=== PATIENT | female | born 1935 | race Caucasian/White ===

== ENCOUNTER 2016-07-15 06:33 | Emergency (ER) | payer OTHER ==
[~2016-07-15] VITALS: Ht 167.6 cm; Wt 50.0 kg
[~2016-07-15 06:33] MED LIST: CO Q100C9 PO; FISH1000 PO; NITR100C4 PO; RED600TA PO; VITA-13 PO
[2016-07-15 06:35] VITALS: BP 145/73; PULSE 85; RESP 16; TEMP 98.6; O2SAT 99
[2016-07-15] MEDS ORDERED: COQ-150C (06:45)
[2016-07-15] MEDS ORDERED: VITA100064 PO (06:45)
[2016-07-15] MEDS ORDERED: TIZA2CAP3 PO (06:45)
[2016-07-15] MEDS ORDERED: FISH1000 (06:45)
--- NOTE | 2016-07-15 07:14 | PD ---
HPI Chief Complaint: Back/ Neck Pain or Injury Time Seen by Provider: 06:56 Travel History International Travel<30 days: No Contact w/Intl Traveler<30days: No Traveled to known affect area: No History of Present Illness HPI The patient is a 81-year-old female who presents emergency department for bilateral neck pain. The patient notes recent neck pain or last several weeks, was seen by her nurse practitioner at her physician's office that took her off of red rice yeast for hyperlipidemia. The patient was then seen by her neurologist who performed muscle test, which were negative for the patient. The patient was placed on Zanaflex. The patient states she was getting laundry out of the washer yesterday, it was tangled up, she was straining to pull it out of the washer. She now complains of bilateral neck pain with tightness. The pain is worse with movement of her neck, she feels like she has to hold her neck in place. She denies any direct trauma to the neck and denies any recent falls. She did have weakness of the left upper extremity 1 week ago, underwent physical therapy, and now no she is able to use her left upper extremity. She does note some generalized weakness, denies any urinary or fecal incontinence. She denies any numbness or tingling to the upper or lower extremities. She denies any cavity chest pain, shortness breath, nausea, vomiting, abdominal pain. She denies any headache. The patient took 2 Zanaflex without any alleviation of her symptoms. He denies any fever, chills, or sweats. She recently was treated for UTI with Cipro and finished the Cipro. [facility], [facility] Past Medical History Cancer: No Cardiovascular Problems: No Diabetes: No Endocrine: No Genitourinary: Yes (BLADDER PROLAPSE) Hepatitis: No Hiatal Hernia: No Immune Disorder: No Musculoskeletal: Yes (ARTHRITIS, OSTEOPENIA) Neurologic: No Psychiatric: No Reproductive: No Respiratory: No Thyroid Disease: No Tetanus Vaccination: > 5 Years Past Surgical History Abdominal Surgery: Yes (CHOLECYSTECTOMY, APPY) AICD: No Cardiac Surgery: No Ear Surgery: No Endocrine Surgery: No Eye Surgery: No Genitourinary Surgery: No Gynecologic Surgery: Yes (NUHA) Joint Replacement: No Oral Surgery: Yes (T&A) Pacemaker: No Thoracic Surgery: No Other Surgery: Yes Social History Alcohol Use: No Tobacco Use: No Substance Use: No Allergies-Medications (Allergen,Severity, Reaction): Coded Allergies: Alcohol (Unverified Allergy, Severe, VOMITING, SYNCOPE, DIARRHEA, 07/15/16) HMG-CoA Reductase Inhibitors (Unverified Allergy, Severe, MUSCLE WEAKNESS , SYNCOPE, 07/15/16) Penicillin (Unverified Allergy, Severe, HIVES, SWELLING, 07/15/16) Reported Meds & Prescriptions Reported Meds & Active Scripts Active Reported Fish Oil (Alsey-3 Fatty Acids) 1,000 Mg Cap 2,000 Coq-10 (Coenzyme Q10 (Ubidecarenone)) 150 Mg Cap Vitamin D (Cholecalciferol) 1,000 Unit Tab 1,000 Units PO DAILY Tizanidine (Tizanidine HCl) 2 Mg Cap 2 Mg PO TID Review of Systems Except as stated in HPI: all other systems reviewed are Neg General / Constitutional: No: Fever HENT: Positive: Neck Stiffness, Neck Pain, No: Headaches Cardiovascular: No: Chest Pain or Discomfort Respiratory: No: Shortness of Breath Gastrointestinal: No: Nausea, Vomiting, Abdominal Pain Musculoskeletal: Positive: Pain Neurologic: No: Focal Abnormalities, Headache, Paresthesia, Sensory Disturbance Physical Exam Narrative GENERAL: Awake, alert, pleasant 81-year-old female who appears her stated age and appears in moderate discomfort. SKIN: Focused skin assessment warm/dry. HEAD: Atraumatic. Normocephalic. EYES: Pupils equal and round. No scleral icterus. No injection or drainage. ENT: No nasal bleeding or discharge. Mucous membranes pink and moist. NECK: Trachea midline. No JVD. Tenderness of the paravertebral muscles. Limited range of motion with flexion, extension, and rotation secondary to pain. CARDIOVASCULAR: Regular rate and rhythm. No murmur appreciated. RESPIRATORY: No accessory muscle use. Clear to auscultation. Breath sounds equal bilaterally. GASTROINTESTINAL: Abdomen soft, non-tender, nondistended. No rebound tenderness. MUSCULOSKELETAL: No obvious deformities. No clubbing. No cyanosis. No edema. Positive radial pulses bilateral. Patient is able raise arms above her head and is able flex hips and knees. NEUROLOGICAL: Awake and alert. No obvious cranial nerve deficits. Motor grossly within normal limits. Normal speech. Sensation is intact all 4 extremities. She is alert and oriented, nonfocal on exam. PSYCHIATRIC: Appropriate mood and affect; insight and judgment normal. Data Data Last Documented VS Vital Signs Date Time Temp Pulse Resp B/P Pulse Ox O2 Delivery O2 Flow Rate FiO2 07/15/16 08:00 128/74 07/15/16 07:35 16 07/15/16 06:35 98.6 85 99 Room Air Orders Complete Blood Count With Diff (07/15/16 07:04) Comprehensive Metabolic Panel (07/15/16 07:04) Creatine Kinase (Cpk) (07/15/16 07:04) Westergren Sedimentation Rate (07/15/16 07:04) Mri C Spine W/O Contrast (07/15/16 ) Morphine Inj (Morphine Inj) (07/15/16 07:15) Ondansetron Inj (Zofran Inj) (07/15/16 07:15) Ketorolac Inj (Toradol Inj) (07/15/16 07:15) Apply Cervical Collar (07/15/16 07:04) CKMB (07/15/16 07:10) CKMB% (07/15/16 07:10) Urinalysis - C+S If Indicated (07/15/16 07:58) Labs Laboratory Tests Test 07/15/16 07/15/16 07:10 07:30 White Blood Count 7.5 TH/MM3 Red Blood Count 4.34 MIL/MM3 Hemoglobin 12.8 GM/DL Hematocrit 38.3 % Mean Corpuscular Volume 88.1 FL Mean Corpuscular Hemoglobin 29.4 PG Mean Corpuscular Hemoglobin 33.4 % Concent Red Cell Distribution Width 13.6 % Platelet Count 307 TH/MM3 Mean Platelet Volume 7.3 FL Neutrophils (%) (Auto) 64.1 % Lymphocytes (%) (Auto) 26.2 % Monocytes (%) (Auto) 8.7 % Eosinophils (%) (Auto) 0.3 % Basophils (%) (Auto) 0.7 % Neutrophils # (Auto) 4.8 TH/MM3 Lymphocytes # (Auto) 2.0 TH/MM3 Monocytes # (Auto) 0.7 TH/MM3 Eosinophils # (Auto) 0.0 TH/MM3 Basophils # (Auto) 0.1 TH/MM3 CBC Comment DIFF FINAL Differential Comment Erythrocyte Sedimentation Rate 49 mm/hr Sodium Level 138 MEQ/L Potassium Level 3.5 MEQ/L Chloride Level 106 MEQ/L Carbon Dioxide Level 22.7 MEQ/L Anion Gap 9 MEQ/L Blood Urea Nitrogen 11 MG/DL Creatinine 1.02 MG/DL Estimat Glomerular Filtration 52 ML/MIN Rate Random Glucose 105 MG/DL Calcium Level 8.9 MG/DL Total Bilirubin 0.4 MG/DL Aspartate Amino Transf 30 U/L (AST/SGOT) Alanine Aminotransferase 37 U/L (ALT/SGPT) Alkaline Phosphatase 97 U/L Total Creatine Kinase 272 U/L Creatine Kinase MB 1.1 NG/ML Creatine Kinase MB % 0.4 % Total Protein 8.2 GM/DL Albumin 3.4 GM/DL Urine Color LIGHT-YELLOW Urine Turbidity CLEAR Urine pH 6.0 Urine Specific [place] 1.003 Urine Protein NEG mg/dL Urine Glucose (UA) NEG mg/dL Urine Ketones NEG mg/dL Urine Occult Blood NEG Urine Nitrite NEG Urine Bilirubin NEG Urine Urobilinogen LESS THAN 2.0 MG/DL Urine Leukocyte Esterase NEG Urine WBC LESS THAN 1 /hpf Urine Squamous Epithelial <1 /hpf Cells Microscopic Urinalysis Comment CULT NOT INDICATED MDM Medical Decision Making Medical Screen Exam Complete: Yes Emergency Medical Condition: Yes Medical Record Reviewed: Yes Interpretation(s) MRI reveals mild degenerative changes without focal disc herniation or cord compression. Most significant finding is neural foraminal encroachment. Laboratory Tests Test 07/15/16 07/15/16 07:10 07:30 White Blood Count 7.5 TH/MM3 Red Blood Count 4.34 MIL/MM3 Hemoglobin 12.8 GM/DL Hematocrit 38.3 % Mean Corpuscular Volume 88.1 FL Mean Corpuscular Hemoglobin 29.4 PG Mean Corpuscular Hemoglobin 33.4 % Concent Red Cell Distribution Width 13.6 % Platelet Count 307 TH/MM3 Mean Platelet Volume 7.3 FL Neutrophils (%) (Auto) 64.1 % Lymphocytes (%) (Auto) 26.2 % Monocytes (%) (Auto) 8.7 % Eosinophils (%) (Auto) 0.3 % Basophils (%) (Auto) 0.7 % Neutrophils # (Auto) 4.8 TH/MM3 Lymphocytes # (Auto) 2.0 TH/MM3 Monocytes # (Auto) 0.7 TH/MM3 Eosinophils # (Auto) 0.0 TH/MM3 Basophils # (Auto) 0.1 TH/MM3 CBC Comment DIFF FINAL Differential Comment Erythrocyte Sedimentation Rate 49 mm/hr Sodium Level 138 MEQ/L Potassium Level 3.5 MEQ/L Chloride Level 106 MEQ/L Carbon Dioxide Level 22.7 MEQ/L Anion Gap 9 MEQ/L Blood Urea Nitrogen 11 MG/DL Creatinine 1.02 MG/DL Estimat Glomerular Filtration 52 ML/MIN Rate Random Glucose 105 MG/DL Calcium Level 8.9 MG/DL Total Bilirubin 0.4 MG/DL Aspartate Amino Transf 30 U/L (AST/SGOT) Alanine Aminotransferase 37 U/L (ALT/SGPT) Alkaline Phosphatase 97 U/L Total Creatine Kinase 272 U/L Total Protein 8.2 GM/DL Albumin 3.4 GM/DL Urine Color LIGHT-YELLOW Urine Turbidity CLEAR Urine pH 6.0 Urine Specific [place] 1.003 Urine Protein NEG mg/dL Urine Glucose (UA) NEG mg/dL Urine Ketones NEG mg/dL Urine Occult Blood NEG Urine Nitrite NEG Urine Bilirubin NEG Urine Urobilinogen LESS THAN 2.0 MG/DL Urine Leukocyte Esterase NEG Urine WBC LESS THAN 1 /hpf Urine Squamous Epithelial <1 /hpf Cells Microscopic Urinalysis Comment CULT NOT INDICATED Differential Diagnosis Differential diagnoses includes cervical myelopathy, myositis, polymyalgia rheumatica, syringomyelia, fracture, medication side effect, muscle strain. Narrative Course IV was established, labs are drawn and sent, and the patient was placed on cardiac telemetry monitoring and continuous pulse oximetry monitoring. The patient was administered morphine, Zofran, and Toradol intravenously with IV fluids. CPK and sedimentation rate were sent to lab. The patient was placed in a soft cervical collar for comfort. MRI of the cervical spine was ordered. MRI reveals mild degenerative changes without focal disc herniation or cord compression. Most significant finding is neural foraminal encroachment. Patient is stable for outpatient follow-up with her primary physician. Diagnosis Primary Impression: Neck pain Patient Instructions: General Instructions, Narcotic given in the ED Additional Instructions: Medrol Dosepak and [place] as directed. Continue Zanaflex. Soft collar as needed. Ice and/or heat to the affected area. Follow-up with your primary physician. Please provide the patient a copy of her MRI and labs at discharge. Return if symptoms worsen or progress. Med/Other Pt SpecificInfo: Prescription(s) given Scripts Hydrocodone-Acetaminophen ([place])5-325 mg Tab1 Tab PO Q6H PRN (PAIN) #15 TAB Ref 0 Prov:Mansoor Blanco MD 07/15/16 Methylprednisolone Dosepak (Medrol Dosepak)4 Mg Dspk4 Mg PO DIRECTED #1 DSPK Ref 0 Per Pharmacist direction Prov:Mansoor Blanco MD 07/15/16 Disposition: 01 DISCHARGE HOME Condition: Stable Mansoor Blanco MD Jul 15, 2016 07:14
[2016-07-15] MEDS ORDERED: ONDANSETRON HCL 4 MG/2 ML VIAL IV PUSH ONE (07:15)
[2016-07-15] MEDS ORDERED: MORPHINE SULFATE 4 MG/ML INJ IV PUSH ONE (07:15)
[2016-07-15] MEDS ORDERED: KETOROLAC TROMETHAMINE 30 MG/ML (IVP) VIAL IV PUSH ONE (07:15)
[2016-07-15 07:26] LABS: AUTOMATED NEUTROPHIL # 4.8 TH/MM3 (1.8-7.7); BASOPHIL # 0.1 TH/MM3 (0-0.2); BASOPHIL % 0.7 % (0.0-2.0); EOSINOPHIL % 0.3 % (0.0-4.0); HEMATOCRIT 38.3 % (35.0-46.0); HEMO FLAGS DIFF FINAL; LYMPH % 26.2 % (9.0-44.0); MEAN CELL VOLUME 88.1 FL (80.0-100.0); MEAN CORPUSCULAR HEMOGLOBIN 29.4 PG (27.0-34.0); MEAN CORPUSCULAR HGB CONC 33.4 % (32.0-36.0); MONO % 8.7 % (0.0-8.0); NEUT % 64.1 % (16.0-70.0); PLATELET COUNT 307 TH/MM3 (150-450); RED BLOOD COUNT 4.34 MIL/MM3 (4.00-5.30); RED CELL DISTRIBUTION WIDTH 13.6 % (11.6-17.2); WHITE BLOOD COUNT 7.5 TH/MM3 (4.0-11.0)
[2016-07-15 07:35] VITALS: RESP 16
[2016-07-15 07:48] LABS: ANION GAP 9 MEQ/L (5-15); AST (GOT) 30 U/L (15-37); BICARBONATE 22.7 MEQ/L (21.0-32.0); BLOOD UREA NITROGEN 11 MG/DL (7-18); CHLORIDE 106 MEQ/L (98-107); GLOMERULAR FILTRATION RATE 52 ML/MIN (>89); POTASSIUM 3.5 MEQ/L (3.5-5.1); SODIUM (NA) 138 MEQ/L (136-145)
[2016-07-15 07:51] LABS: ALKALINE PHOSPHATASE 97 U/L (45-117); ALT (GPT) 37 U/L (10-53); CREATINE KINASE 272 U/L (26-192); TOTAL BILIRUBIN ADULT 0.4 MG/DL (0.2-1.0)
[2016-07-15 08:00] VITALS: BP 128/74
[2016-07-15 08:22] LABS: BLOOD, URINE NEG (NEG); GLUCOSE,URINE NEG (NEG); KETONE, URINE NEG (NEG); NITRITE,URINE NEG (NEG); SQUAMOUS EPITHELIAL CELL URINE <1 /hpf (0-5); URINE COLOR LIGHT-YELLOW (YELLW/STRAW)
[2016-07-15 08:28] LABS: COMMENT (UR) CULT NOT INDICATED; CULTURE IF INDICATED CULT NOT INDICATED
[2016-07-15 09:09] LABS: CKMB 1.1 NG/ML (0.5-3.6)
--- NOTE | 2016-07-15 10:03 | RADRPT ---
EXAM DATE/TIME: 07/15/2016 08:44 [facility] COMPARISON: No previous studies available for comparison. INDICATIONS : Neck pain and spasms into head and neck and left arm. MEDICAL HISTORY : Hypercholesterolemia. Arthritis SURGICAL HISTORY : Bladder prolapse repair. ENCOUNTER: Initial ACUITY: 1 week PAIN SCORE: 3/10 LOCATION: Neck TECHNIQUE: Multiplanar, multisequence MRI examination of the cervical spine was performed. FINDINGS: By MRI the marrow signal in the cervical vertebra are homogeneous and normal. Signal intensity in the cord is normal. C2-C3: The thecal sac has a normal configuration. There is no evidence of disc herniation or spinal canal s tenosis. The neural foramina are patent bilaterally. C3-C4: The thecal sac has a normal configuration. There is no evidence of disc herniation or spinal canal s tenosis. The neural foramina are patent bilaterally. C4-C5: There is very mild interspace ridging present with mild left-sided neural foramina encroachment. C5-C6: There is mild uncinate ridging without significant spinal stenosis. There is minimal bilateral neura l foramina encroachment. C6-C7: The thecal sac has a normal configuration. There is no evidence of disc herniation or spinal canal s tenosis. The neural foramina are patent bilaterally. C7-T1: The thecal sac has a normal configuration. There is no evidence of disc herniation or spinal canal s tenosis. The neural foramina are patent bilaterally. CONCLUSION: Mild degenerative changes without focal disc herniation or cord compression. Most significant findin g is neural foraminal encroachment. Nick Gamboa MD FACR on July 15, 2016 at 9:29 Board Certified Radiologist. This report was verified electronically.
[2016-07-15] MEDS ORDERED: MEDR4PAK PO (10:12)
[2016-07-15] MEDS ORDERED: NORC5TAB PO (10:12)
[2016-07-15 11:04] VITALS: BP 113/61
== END 2016-07-15 11:03 | disposition home or self-care (01) ==
LOC: NEPC 06:33
DX: M54.2 Cervicalgia (principal); R53.1 Weakness; Z87.448 Personal history of other diseases of urinary system; Z87.39 Personal history of other diseases of the musculoskeletal system and connective tissue
CPT/HCPCS: 72141; 80053; 81001; 82550; 82552; 85025; 85652; 96374; 96375; 99284; J1885; J2270; J2405; L0150

== ENCOUNTER 2017-04-20 11:05 | Emergency (ER) | payer OTHER ==
[~2017-04-20] VITALS: Ht 157.5 cm; Wt 50.0 kg
[~2017-04-20 11:05] MED LIST changes: -CO Q100C9 PO; +COQ-150C; +FISH1000; -FISH1000 PO; +MEDR4PAK PO; -NITR100C4 PO; +NORC5TAB PO; -RED600TA PO; +TIZA2CAP3 PO; -VITA-13 PO; +VITA100064 PO
[2017-04-20 11:07] VITALS: BP 105/69; PULSE 96; RESP 18; TEMP 99.2; O2SAT 100
--- NOTE | 2017-04-20 11:50 | PD ---
HPI Chief Complaint: Medical Clearance Time Seen by Provider: 11:48 Travel History International Travel<30 days: No Contact w/Intl Traveler<30days: No Traveled to known affect area: No History of Present Illness HPI 82-year-old female presents to the emergency Department with complaint of continued right knee pain, weakness, fatigue since March 29 after having right knee surgery. Decreased appetite and insomnia. Reports low-grade fever of 99 times one week. Denies chest pain, shortness of breath. Denies abdominal pain, vomiting. Reports lightheadedness and dizziness. Says there are times where she "feels like she's going to faint." Denies headaches. Was started on Xarelto after her surgery and has been taking it as prescribed. Has been doing lots of physical therapy and is able to ambulate on the affected extremity. Has been taking tramadol and ibuprofen for symptom management. He is concerned that she is going through withdrawals from the tramadol. She weaned herself off and last took half a pill of tramadol on April 17. She has a prescription for tramadol at home. Dr. Tanner is orthopedic surgeon. She saw him on April 11 and has an appointment on May 09 for follow-up. Primary care provider is Dr. Logan. Denies significant past medical history. Multiple allergies as listed on the chart. No complaints. No other modifying factors or associated signs and symptoms. PFSH Past Medical History Hx Anticoagulant Therapy: Yes Cancer: No Cardiovascular Problems: No Diabetes: No Endocrine: No Genitourinary: Yes (BLADDER PROLAPSE) Hepatitis: No Hiatal Hernia: No Immune Disorder: No Musculoskeletal: Yes (ARTHRITIS, OSTEOPENIA) Neurologic: No Psychiatric: No Reproductive: No Respiratory: No Thyroid Disease: No Past Surgical History Abdominal Surgery: Yes (CHOLECYSTECTOMY, APPY) AICD: No Cardiac Surgery: No Ear Surgery: No Endocrine Surgery: No Eye Surgery: No Genitourinary Surgery: No Gynecologic Surgery: Yes (NUHA) Joint Replacement: No Oral Surgery: Yes (T&A) Pacemaker: No Thoracic Surgery: No Other Surgery: Yes Social History Alcohol Use: No Tobacco Use: No Substance Use: No Allergies-Medications (Allergen,Severity, Reaction): Coded Allergies: alcohol (Unverified Allergy, Severe, VOMITING, SYNCOPE, DIARRHEA, 04/20/17) amlodipine (Unverified Allergy, Severe, MUSCLE WEAKNESS, SYNCOPE, 04/20/17) atorvastatin (Unverified Allergy, Severe, MUSCLE WEAKNESS, SYNCOPE, 04/20/17 ) penicillin G (Unverified Allergy, Severe, HIVES, SWELLING, 04/20/17) pravastatin (Unverified Allergy, Severe, MUSCLE WEAKNESS, SYNCOPE, 04/20/17) simvastatin (Unverified Allergy, Severe, MUSCLE WEAKNESS, SYNCOPE, 04/20/17) Reported Meds & Prescriptions Reported Meds & Active Scripts Active Walker (Hydrocodone-Acetaminophen) 5-325 mg Tab 1 Tab PO Q6H PRN Medrol Dosepak (Methylprednisolone) 4 Mg Dspk 4 Mg PO DIRECTED Per Pharmacist direction Reported Fish Oil (Gerald-3 Fatty Acids) 1,000 Mg Cap 2,000 Coq-10 (Coenzyme Q10 (Ubidecarenone)) 150 Mg Cap Vitamin D (Cholecalciferol) 1,000 Unit Tab 1,000 Units PO DAILY Tizanidine (Tizanidine HCl) 2 Mg Cap 2 Mg PO TID Review of Systems Except as stated in HPI: all other systems reviewed are Neg Physical Exam Narrative GENERAL: Well-nourished, well-developed elderly, female patient, in no acute distress; afebrile, nontoxic-appearing SKIN: Warm and dry. HEAD: Atraumatic. Normocephalic. No facial droop noted. Tongue midline. Finger -to-nose normal. Shoulder shrug is equal. EYES: Pupils equal and round. No scleral icterus. No injection or drainage. ENT: Mucosa pink and moist. Airway patent. NECK: Trachea midline. CARDIOVASCULAR: Regular rate and rhythm. no murmur appreciated. RESPIRATORY: No accessory muscle use. Breath sounds clear and equal bilaterally. No retractions or tachypnea. MUSCULOSKELETAL: Right knee edematous, nonerythematous, and without ecchymosis ; full range of motion and flexion to 90; point tenderness to the posterior aspect; joint stable with negative drawer test; no obvious deformity. Right Lower extremity is supple and non-tense with 2+ pedal pulse and sensory intact and without erythema or edema. Scar noted to the anterior mid knee; without signs of infection; healed. NEUROLOGICAL: Awake and alert. Oriented 3. No obvious cranial nerve deficits. No ataxia. No midline drift. No upper or lower extremity drift. Motor grossly within normal limits. Normal speech. PSYCHIATRIC: Appropriate mood and affect; insight and judgment normal. Data Data Last Documented VS Vital Signs Date Time Temp Pulse Resp B/P (MAP) Pulse Ox O2 Delivery O2 Flow Rate FiO2 04/20/17 13:42 04/20/17 11:07 99.2 96 18 100 Orders Orders Basic Metabolic Panel (Bmp) (04/20/17 12:05) Complete Blood Count With Diff (04/20/17 12:05) Urinalysis - C+S If Indicated (04/20/17 12:05) Ecg Monitoring (04/20/17 12:05) Iv Access Insert/Monitor (04/20/17 12:05) Oximetry (04/20/17 12:05) Sodium Chloride 0.9% Flush (Ns Flush) (04/20/17 12:15) Influenzae A/B Antigen (04/20/17 12:05) Sodium Chlorid 0.9% 500 Ml Inj (Ns 500 M (04/20/17 12:15) Acetaminophen (Tylenol) (04/20/17 12:15) Ed Discharge Order (04/20/17 13:22) Labs Laboratory Tests Test 04/20/17 12:30 White Blood Count 4.1 TH/MM3 Red Blood Count 4.07 MIL/MM3 Hemoglobin 12.0 GM/DL Hematocrit 36.0 % Mean Corpuscular Volume 88.4 FL Mean Corpuscular Hemoglobin 29.6 PG Mean Corpuscular Hemoglobin Concent 33.5 % Red Cell Distribution Width 13.5 % Platelet Count 433 TH/MM3 Mean Platelet Volume 7.0 FL Neutrophils (%) (Auto) 35.9 % Lymphocytes (%) (Auto) 49.5 % Monocytes (%) (Auto) 13.4 % Eosinophils (%) (Auto) 0.7 % Basophils (%) (Auto) 0.5 % Neutrophils # (Auto) 1.5 TH/MM3 Lymphocytes # (Auto) 2.0 TH/MM3 Monocytes # (Auto) 0.6 TH/MM3 Eosinophils # (Auto) 0.0 TH/MM3 Basophils # (Auto) 0.0 TH/MM3 CBC Comment DIFF FINAL Differential Comment Urine Color YELLOW Urine Turbidity CLEAR Urine pH 6.5 Urine Specific [place] 1.011 Urine Protein NEG mg/dL Urine Glucose (UA) NEG mg/dL Urine Ketones NEG mg/dL Urine Occult Blood NEG Urine Nitrite NEG Urine Bilirubin NEG Urine Urobilinogen LESS THAN 2.0 MG/DL Urine Leukocyte Esterase NEG Urine RBC LESS THAN 1 /hpf Urine WBC LESS THAN 1 /hpf Urine Mucus FEW /lpf Microscopic Urinalysis Comment CULT NOT INDICATED Blood Urea Nitrogen 10 MG/DL Creatinine 0.90 MG/DL Random Glucose 97 MG/DL Calcium Level 9.2 MG/DL Sodium Level 139 MEQ/L Potassium Level 3.7 MEQ/L Chloride Level 106 MEQ/L Carbon Dioxide Level 25.3 MEQ/L Anion Gap 8 MEQ/L Estimat Glomerular Filtration Rate 60 ML/MIN MDM Medical Decision Making Medical Screen Exam Complete: Yes Emergency Medical Condition: Yes Medical Record Reviewed: Yes Differential Diagnosis Knee pain after surgery, septic joint, viral illness, influenza, opioid withdrawal Narrative Course 82-year-old female presents with complaint of pain of right knee after surgery and feeling lightheaded and dizzy with low-grade fever for the past week. Dr. Tanner is orthopedic surgeon. She has follow-up appointment with Dr. Gonzalez on May 09. I spoke with Dr. Guerrero and she agreed with my plan of care. CBC , BMP, influenza, urinalysis ordered. Tylenol ordered. CBC unremarkable other than mono % 13.4. BMP unremarkable. Urinalysis without signs of infection. Influenza negative. 1319: Dr. Guerrero evaluated and agree with discharge. Instructed patient to follow up with orthopedic surgeon. Patient prescription for tramadol at home. Instructed patient to follow up with primary care provider. Patient verbalizes understanding and agreement with treatment plan. Patient is medically cleared and stable for discharge. Discussed reasons to return to the emergency department. Patient agrees with treatment plan. The patients vital signs are stable and the patient is stable for outpatient follow-up and treatment. Patient discharged home, stable and in no acute distress. Diagnosis Primary Impression: Pain of right knee after injury Additional Impression: Fatigue Qualified Codes: R53.83 - Other fatigue Referrals: Orthopaedic Surgeon Primary Care Physician Patient Instructions: Fatigue (ED), General Instructions, Knee Pain (ED) Additional Instructions: Tylenol or ibuprofen as needed and as directed to reduce pain and inflammation Rest, ice, compress, and elevate extremity to decrease pain and inflammation Avoid aggravating activity; increase activity as tolerated Drink plenty of fluids including Gatorade and other electrolyte replacement drinks Follow-up with primary care provider Follow-up with orthopedics Return to the emergency department immediately with worsening symptoms Med/Other Pt SpecificInfo: No Change to Meds, No Meds Exist/No RX given Disposition: 01 DISCHARGE HOME Condition: Stable Laura Messina Apr 20, 2017 11:50
[2017-04-20] MEDS ORDERED: ACETAMINOPHEN 325 MG TAB PO ONE (12:15)
[2017-04-20] MEDS ORDERED: SODIUM CHLORID 0.9% 500 ML INJ 500 ML IV ONE (12:15)
[2017-04-20] MEDS ORDERED: SODIUM CHLORIDE 0.9% FLUSH 10 ML FLUSH IVF PRN (12:15)
[2017-04-20 12:49] LABS: AUTOMATED NEUTROPHIL # 1.5 TH/MM3 (1.8-7.7); BASOPHIL % 0.5 % (0.0-2.0); EOSINOPHIL % 0.7 % (0.0-4.0); LYMPH % 49.5 % (9.0-44.0); MEAN CELL VOLUME 88.4 FL (80.0-100.0); MEAN CORPUSCULAR HEMOGLOBIN 29.6 PG (27.0-34.0); MEAN CORPUSCULAR HGB CONC 33.5 % (32.0-36.0); MONO % 13.4 % (0.0-8.0); MONOCYTE # 0.6 TH/MM3 (0-0.9); NEUT % 35.9 % (16.0-70.0); PLATELET COUNT 433 TH/MM3 (150-450); RED BLOOD COUNT 4.07 MIL/MM3 (4.00-5.30); RED CELL DISTRIBUTION WIDTH 13.5 % (11.6-17.2); WHITE BLOOD COUNT 4.1 TH/MM3 (4.0-11.0)
[2017-04-20 12:54] LABS: BILIRUBIN, URINE NEG (NEG); BLOOD, URINE NEG (NEG); GLUCOSE,URINE NEG (NEG); KETONE, URINE NEG (NEG); MUCUS URINE FEW /lpf (OCC); NITRITE,URINE NEG (NEG); PH, URINE 6.5 (5.0-8.5); URINE COLOR YELLOW (YELLW/STRAW); URINE LEUKOCYTE ESTERASE NEG (NEG)
[2017-04-20 13:05] LABS: BICARBONATE 25.3 MEQ/L (21.0-32.0); CALCIUM 9.2 MG/DL (8.5-10.1); CREATININE 0.9 MG/DL (0.50-1.00)
--- NOTE | 2017-04-20 13:26 | PD ---
Data Data Last Documented VS Vital Signs Date Time Temp Pulse Resp B/P (MAP) Pulse Ox O2 Delivery O2 Flow Rate FiO2 04/20/17 11:07 99.2 96 18 105/69 (81) 100 Orders Orders Basic Metabolic Panel (Bmp) (04/20/17 12:05) Complete Blood Count With Diff (04/20/17 12:05) Urinalysis - C+S If Indicated (04/20/17 12:05) Ecg Monitoring (04/20/17 12:05) Iv Access Insert/Monitor (04/20/17 12:05) Oximetry (04/20/17 12:05) Sodium Chloride 0.9% Flush (Ns Flush) (04/20/17 12:15) Influenzae A/B Antigen (04/20/17 12:05) Sodium Chlorid 0.9% 500 Ml Inj (Ns 500 M (04/20/17 12:15) Acetaminophen (Tylenol) (04/20/17 12:15) Ed Discharge Order (04/20/17 13:22) Labs Laboratory Tests Test 04/20/17 12:30 White Blood Count 4.1 TH/MM3 Red Blood Count 4.07 MIL/MM3 Hemoglobin 12.0 GM/DL Hematocrit 36.0 % Mean Corpuscular Volume 88.4 FL Mean Corpuscular Hemoglobin 29.6 PG Mean Corpuscular Hemoglobin Concent 33.5 % Red Cell Distribution Width 13.5 % Platelet Count 433 TH/MM3 Mean Platelet Volume 7.0 FL Neutrophils (%) (Auto) 35.9 % Lymphocytes (%) (Auto) 49.5 % Monocytes (%) (Auto) 13.4 % Eosinophils (%) (Auto) 0.7 % Basophils (%) (Auto) 0.5 % Neutrophils # (Auto) 1.5 TH/MM3 Lymphocytes # (Auto) 2.0 TH/MM3 Monocytes # (Auto) 0.6 TH/MM3 Eosinophils # (Auto) 0.0 TH/MM3 Basophils # (Auto) 0.0 TH/MM3 CBC Comment DIFF FINAL Differential Comment Urine Color YELLOW Urine Turbidity CLEAR Urine pH 6.5 Urine Specific [place] 1.011 Urine Protein NEG mg/dL Urine Glucose (UA) NEG mg/dL Urine Ketones NEG mg/dL Urine Occult Blood NEG Urine Nitrite NEG Urine Bilirubin NEG Urine Urobilinogen LESS THAN 2.0 MG/DL Urine Leukocyte Esterase NEG Urine RBC LESS THAN 1 /hpf Urine WBC LESS THAN 1 /hpf Urine Mucus FEW /lpf Microscopic Urinalysis Comment CULT NOT INDICATED Blood Urea Nitrogen 10 MG/DL Creatinine 0.90 MG/DL Random Glucose 97 MG/DL Calcium Level 9.2 MG/DL Sodium Level 139 MEQ/L Potassium Level 3.7 MEQ/L Chloride Level 106 MEQ/L Carbon Dioxide Level 25.3 MEQ/L Anion Gap 8 MEQ/L Estimat Glomerular Filtration Rate 60 ML/MIN [facility] Supervised Visit with SHANE: Yes Narrative Course The history, exam, and medical decision-making in the associated midlevel provider note were completed with my assistance. I reviewed and agree with the findings presented. I attest that I had a [id number] encounter with the patient on the same day, and personally performed and documented my assessment and findings in the medical record. *My assessment and Findings: This is an 82-year-old female who had a right knee replacement about 1 month ago who presents to the emergency department with fatigue, weakness and difficulty sleeping due to pain in her knee. She has been taking tramadol for the pain but she feels that is making her sick. Her knee seems to be healing quite well. She has very good range of motion and minimal pain during the day. It is only at nighttime that her knee pain acts up. On exam she appears a little dehydrated but is nontoxic appearing. Labs are all reassuring. She does have a monocytic shift suggesting an underlying viral syndrome. I do not suspect an infection of her knee. It appears to be healing well, she has painless range of motion and there is minimal warmth. I think the patient is somewhat dehydrated. She was given a 500 cc bag of IV fluids in the emergency department. She was encouraged to drink Gatorade at home. I suggested she change from tramadol to Tylenol and I asked her to follow -up with her orthopedic surgeon. Diagnosis Primary Impression: Pain of right knee after injury Additional Impression: Fatigue Qualified Codes: R53.83 - Other fatigue Referrals: Orthopaedic Surgeon Primary Care Physician Patient Instructions: General Instructions, Knee Pain (ED), Fatigue (ED) Additional Instruction: Tylenol or ibuprofen as needed and as directed to reduce pain and inflammation Rest, ice, compress, and elevate extremity to decrease pain and inflammation Avoid aggravating activity; increase activity as tolerated Drink plenty of fluids including Gatorade and other electrolyte replacement drinks Follow-up with primary care provider Follow-up with orthopedics Return to the emergency department immediately with worsening symptoms Disposition: 01 DISCHARGE HOME Condition: Stable Irina Guerrero MD Apr 20, 2017 13:26
== END 2017-04-20 13:43 | disposition home or self-care (01) ==
LOC: NEPD 11:05
DX: M25.561 Pain in right knee (principal); R53.83 Other fatigue; R53.81 Other malaise; R42 Dizziness and giddiness; R50.9 Fever, unspecified; M19.90 Unspecified osteoarthritis, unspecified site; M85.80 Other specified disorders of bone density and structure, unspecified site; Z96.651 Presence of right artificial knee joint; Z79.899 Other long term (current) drug therapy
CPT/HCPCS: 80048; 81001; 85025; 87804; 99284; J7040

== ENCOUNTER 2017-04-26 11:43 | Emergency (ER) | payer OTHER ==
[~2017-04-26] VITALS: Ht 157.5 cm; Wt 50.0 kg
[2017-04-26 11:44] VITALS: BP 112/64; PULSE 94; RESP 18; TEMP 98.3; O2SAT 100
[2017-04-26] MEDS ORDERED: IOHEXOL 350 MG/ML 10 ML VIAL (for RAD DIAG) IVCONTRAST ONE (11:44)
[2017-04-26 13:45] LABS: AUTOMATED NEUTROPHIL # 2.6 TH/MM3 (1.8-7.7); BASOPHIL % 0.5 % (0.0-2.0); EOSINOPHIL # 0.1 TH/MM3 (0-0.4); EOSINOPHIL % 1.1 % (0.0-4.0); HEMATOCRIT 38.7 % (35.0-46.0); HEMOGLOBIN 13.1 GM/DL (11.6-15.3); LYMPH % 50.8 % (9.0-44.0); LYMPHOCYTE # 3.3 TH/MM3 (1.0-4.8); MEAN CELL VOLUME 87.7 FL (80.0-100.0); MEAN CORPUSCULAR HEMOGLOBIN 29.8 PG (27.0-34.0); MEAN CORPUSCULAR HGB CONC 33.9 % (32.0-36.0); MEAN PLATELET VOLUME 7.3 FL (7.0-11.0); MONO % 7.2 % (0.0-8.0); MONOCYTE # 0.5 TH/MM3 (0-0.9); NEUT % 40.4 % (16.0-70.0); PLATELET COUNT 353 TH/MM3 (150-450); RED BLOOD COUNT 4.41 MIL/MM3 (4.00-5.30); RED CELL DISTRIBUTION WIDTH 13.8 % (11.6-17.2); WHITE BLOOD COUNT 6.6 TH/MM3 (4.0-11.0)
[2017-04-26 13:55] LABS: PROTHROMBIN TIME - PATIENT 10.4 SEC (9.8-11.6)
[2017-04-26 13:58] LABS: BILIRUBIN, URINE NEG (NEG); BLOOD, URINE NEG (NEG); GLUCOSE,URINE NEG (NEG); KETONE, URINE NEG (NEG); NITRITE,URINE NEG (NEG); URINE COLOR LIGHT-YELLOW (YELLW/STRAW); URINE LEUKOCYTE ESTERASE NEG (NEG)
[2017-04-26 14:01] LABS: ALBUMIN 3.8 GM/DL (3.4-5.0); AST (GOT) 47 U/L (15-37); BICARBONATE 24.9 MEQ/L (21.0-32.0); BLOOD UREA NITROGEN 12 MG/DL (7-18); CALCIUM 8.9 MG/DL (8.5-10.1); CHLORIDE 103 MEQ/L (98-107); CREATININE 0.84 MG/DL (0.50-1.00); GLOMERULAR FILTRATION RATE 65 ML/MIN (>89); GLUCOSE,RANDOM 89 MG/DL (74-106); MAGNESIUM 2.3 MG/DL (1.5-2.5); SODIUM (NA) 137 MEQ/L (136-145)
[2017-04-26 14:06] LABS: ALKALINE PHOSPHATASE 133 U/L (45-117); ALT (GPT) 38 U/L (10-53); TOTAL BILIRUBIN ADULT 0.4 MG/DL (0.2-1.0); TOTAL PROTEIN 8.8 GM/DL (6.4-8.2); TROPONIN I LESS THAN 0.02 NG/ML (0.02-0.05)
--- NOTE | 2017-04-26 14:48 | RADRPT ---
EXAM DATE/TIME: 04/26/2017 14:06 [facility] COMPARISON: No previous studies available for comparison. INDICATIONS : Shortness of breath. MEDICAL HISTORY : Hypercholesterolemia. Arthritis. SURGICAL HISTORY : None. ENCOUNTER: Initial ACUITY: 2 weeks PAIN SCORE: 0/10 LOCATION: Bilateral chest FINDINGS: PA and lateral views of the chest demonstrate the lungs to be symmetrically aerated without evidence of mass, infiltrate or effusion. The cardiomediastinal contours are unremarkable. Osseous structure s are intact. CONCLUSION: No acute disease. Santino Lees MD on April 26, 2017 at 14:45 Board Certified Radiologist. This report was verified electronically.
--- NOTE | 2017-04-26 15:10 | PD ---
HPI Chief Complaint: General Weakness Time Seen by Provider: 13:58 Travel History International Travel<30 days: No Contact w/Intl Traveler<30days: No Traveled to known affect area: No History of Present Illness HPI 82-year-old female presents to the ED for evaluation of weakness, dyspnea on exertion, right knee pain, insomnia 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 Patient denies fever, chills, nausea, vomiting, changes in bowel habits, dysuria. She denies weakness of the affected extremity. She states that she's been unable to sleep despite taking Tylenol PM nightly. She was evaluated approximately 1 week ago with the same symptoms, workup was negative. She followed up with the orthopedic PA who stopped blood thinners and recommended Tylenol for pain. PFSH Past Medical History Hx Anticoagulant Therapy: Yes Cancer: No Cardiovascular Problems: No Diabetes: No Endocrine: No Genitourinary: Yes (BLADDER PROLAPSE) Hepatitis: No Hiatal Hernia: No Immune Disorder: No Musculoskeletal: Yes (ARTHRITIS, OSTEOPENIA) Neurologic: No Psychiatric: No Reproductive: No Respiratory: No Thyroid Disease: No Past Surgical History Abdominal Surgery: Yes (CHOLECYSTECTOMY, APPY) AICD: No Cardiac Surgery: No Ear Surgery: No Endocrine Surgery: No Eye Surgery: No Genitourinary Surgery: No Gynecologic Surgery: Yes (NUHA) Joint Replacement: No Oral Surgery: Yes (T&A) Pacemaker: No Thoracic Surgery: No Other Surgery: Yes Social History Alcohol Use: No Tobacco Use: No Substance Use: No Allergies-Medications (Allergen,Severity, Reaction): Coded Allergies: alcohol (Verified Allergy, Severe, VOMITING, SYNCOPE, DIARRHEA, 04/26/17) amlodipine (Verified Allergy, Severe, MUSCLE WEAKNESS, SYNCOPE, 04/26/17) atorvastatin (Verified Allergy, Severe, MUSCLE WEAKNESS, SYNCOPE, 04/26/17) penicillin G (Verified Allergy, Severe, HIVES, SWELLING, 04/26/17) pravastatin (Verified Allergy, Severe, MUSCLE WEAKNESS, SYNCOPE, 04/26/17) simvastatin (Verified Allergy, Severe, MUSCLE WEAKNESS, SYNCOPE, 04/26/17) aspirin (Verified Adverse Reaction, Mild, Nausea/Vomiting, 04/26/17) Reported Meds & Prescriptions Reported Meds & Active Scripts Active [place] (Hydrocodone-Acetaminophen) 5-325 mg Tab 1 Tab PO Q6H PRN Medrol Dosepak (Methylprednisolone) 4 Mg Dspk 4 Mg PO DIRECTED Per Pharmacist direction Reported Fish Oil ([place]-3 Fatty Acids) 1,000 Mg Cap 2,000 Vitamin D3 (Cholecalciferol) 1,000 Unit Tab 1,000 Units PO DAILY Tizanidine (Tizanidine HCl) 2 Mg Cap 2 Mg PO TID Review of Systems Except as stated in HPI: all other systems reviewed are Neg Physical Exam Narrative GENERAL: Well-nourished, well-developed petite, anxious, tearful female in no acute distress. SKIN: Focused skin assessment warm/dry. Well-healing midline scar of the right knee without signs of infection. HEAD: Normocephalic. EYES: No scleral icterus. No injection or drainage. NECK: Supple, trachea midline. No JVD or lymphadenopathy. CARDIOVASCULAR: Regular rate and rhythm without murmurs, gallops, or rubs. RESPIRATORY: Breath sounds clear and equal bilaterally. No accessory muscle use. GASTROINTESTINAL: Abdomen soft, non-tender, nondistended. Active bowel sounds. MUSCULOSKELETAL: No cyanosis, or edema. FOCUSED RIGHT LOWER EXTREMITY EXAM: 2+ DP pulse. Patient is able to extend the leg to 0 and flex beyond 90. Mild warmth of the anterior aspect of the knee. Homans sign negative. Intact to light touch distally. BACK: Nontender without obvious deformity. No CVA tenderness. Data Data Last Documented VS Vital Signs Date Time Temp Pulse Resp B/P (MAP) Pulse Ox O2 Delivery O2 Flow Rate FiO2 04/26/17 17:41 04/26/17 16:35 92 16 79 72 04/26/17 16:35 97 Room Air 04/26/17 16:19 98.6 Orders Orders Electrocardiogram (04/26/17 11:58) Complete Blood Count With Diff (04/26/17 11:58) Comprehensive Metabolic Panel (04/26/17 11:58) Magnesium (Mg) (04/26/17 11:58) Ckmb (Isoenzyme) Profile (04/26/17 11:58) Troponin I (04/26/17 11:58) Act Partial Throm Time (Ptt) (04/26/17 11:58) Prothrombin Time / Inr (Pt) (04/26/17 11:58) Urinalysis - C+S If Indicated (04/26/17 11:58) Chest, Pa & Lat (04/26/17 ) Orthostatic Vital Signs (04/26/17 15:10) Thyroid Stimulating Hormone (04/26/17 15:10) Iv Access Insert/Monitor (04/26/17 15:10) Sodium Chlor 0.9% 1000 Ml Inj (Ns 1000 M (04/26/17 15:15) Meclizine (Antivert) (04/26/17 15:15) Ct Pulmonary Angiogram (04/26/17 15:11) Iohexol 350 Inj (Omnipaque 350 Inj) (04/26/17 11:44) Ed Discharge Order (04/26/17 17:29) Labs Laboratory Tests Test 04/26/17 13:20 White Blood Count 6.6 TH/MM3 Red Blood Count 4.41 MIL/MM3 Hemoglobin 13.1 GM/DL Hematocrit 38.7 % Mean Corpuscular Volume 87.7 FL Mean Corpuscular Hemoglobin 29.8 PG Mean Corpuscular Hemoglobin Concent 33.9 % Red Cell Distribution Width 13.8 % Platelet Count 353 TH/MM3 Mean Platelet Volume 7.3 FL Neutrophils (%) (Auto) 40.4 % Lymphocytes (%) (Auto) 50.8 % Monocytes (%) (Auto) 7.2 % Eosinophils (%) (Auto) 1.1 % Basophils (%) (Auto) 0.5 % Neutrophils # (Auto) 2.6 TH/MM3 Lymphocytes # (Auto) 3.3 TH/MM3 Monocytes # (Auto) 0.5 TH/MM3 Eosinophils # (Auto) 0.1 TH/MM3 Basophils # (Auto) 0.0 TH/MM3 CBC Comment DIFF FINAL Differential Comment Prothrombin Time 10.4 SEC Prothromb Time International Ratio 1.0 RATIO Activated Partial Thromboplast Time 22.2 SEC Urine Color LIGHT-YELLOW Urine Turbidity CLEAR Urine pH 6.0 Urine Specific [place] 1.003 Urine Protein NEG mg/dL Urine Glucose (UA) NEG mg/dL Urine Ketones NEG mg/dL Urine Occult Blood NEG Urine Nitrite NEG Urine Bilirubin NEG Urine Urobilinogen LESS THAN 2.0 MG/DL Urine Leukocyte Esterase NEG Microscopic Urinalysis Comment CULT NOT INDICATED Blood Urea Nitrogen 12 MG/DL Creatinine 0.84 MG/DL Random Glucose 89 MG/DL Total Protein 8.8 GM/DL Albumin 3.8 GM/DL Calcium Level 8.9 MG/DL Magnesium Level 2.3 MG/DL Alkaline Phosphatase 133 U/L Aspartate Amino Transf (AST/SGOT) 47 U/L Alanine Aminotransferase (ALT/SGPT) 38 U/L Total Bilirubin 0.4 MG/DL Sodium Level 137 MEQ/L Potassium Level 3.9 MEQ/L Chloride Level 103 MEQ/L Carbon Dioxide Level 24.9 MEQ/L Anion Gap 9 MEQ/L Estimat Glomerular Filtration Rate 65 ML/MIN Total Creatine Kinase 86 U/L Troponin I LESS THAN 0.02 NG/ML Thyroid Stimulating Hormone 3rd Gen 2.390 uIU/ML MDM Medical Decision Making Medical Screen Exam Complete: Yes Emergency Medical Condition: Yes Differential Diagnosis Anxiety versus insomnia versus deconditioning versus postsurgical pain versus less likely DVT/PE versus other Narrative Course 82-year-old female presents to the ED for evaluation of weakness, dyspnea on exertion, right knee pain, insomnia 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 Patient denies fever, chills, nausea, vomiting, changes in bowel habits, dysuria. She denies weakness of the affected extremity. She states that she's been unable to sleep despite taking Tylenol PM nightly. She was evaluated approximately 1 week ago with the same symptoms, workup was negative. She is afebrile on presentation. On exam she is very anxious appearing, often tearful during the lengthy history gathering process. Physical exam reveals very mild warmth of the anterior aspect of the operative knee but is otherwise unremarkable. I suspect that her symptoms are related to anxiety and insomnia. EKG rate 76, sinus rhythm. NE interval 106, QRS 78, QTC 418 ms. Normal axis. No acute ST changes. Reviewed by Dr. Colon. CXR: No acute disease. Cardiac enzymes negative 1. No concerning abnormalities of the CBC, CMP, coags, UA. TSH 2.390. CTA: No evidence of pulmonary embolism per radiology read. I discussed the results of the workup with the patient and her family. I recommended that she stop taking Tylenol PM, trial melatonin and good sleep hygiene. I recommended that she follow up with her primary care provider for possible SSRI prescription and discuss continued physical therapy with the orthopedic surgeon. The patient and her family were provided copies of the lab work and radiological studies from today. They were reassured by the negative workup. The patient is stable and discharged home. Diagnosis Primary Impression: Insomnia Qualified Codes: G47.00 - Insomnia, unspecified Additional Impressions: Anxiety Knee pain, right Qualified Codes: M25.561 - Pain in right knee Physical deconditioning Referrals: Orthopedist Primary Care Physician Patient Instructions: General Instructions, Insomnia in Older People (GEN) Additional Instructions: Rest, hydrate. Establish good sleep hygiene. Go to bed at the same time nightly in a dark room. Consider a dose of melatonin 20-30 minutes before bedtime. Do not take Tylenol PM while taking melatonin. Alternating 500mg Tylenol and 600mg Ibuprofen every 6-8 hours as needed for pain. Ice packs 3-4 times per day. 10-15 minutes per session. Perform at home physical therapy as directed by the physical therapist. Follow up with your primary care provider and the orthopedist. Return to the ED for worsening symptoms or any urgent/ emergent medical condition. Med/Other Pt SpecificInfo: Prescription(s) given Disposition: 01 DISCHARGE HOME Condition: Stable Monika Garner Apr 26, 2017 15:09
[2017-04-26] MEDS ORDERED: MECLIZINE HCL 25 MG TAB PO ONE (15:15)
[2017-04-26] MEDS ORDERED: SODIUM CHLOR 0.9% 1000 ML INJ 1,000 ML IV ONE (15:15)
--- NOTE | 2017-04-26 15:47 | PD ---
Physical Exam Narrative I, Dr. Colon, have reviewed the advance practice practitioner's documentation and am in agreement, met with the patient face to face, made the diagnosis, and the medical decision making was done by me. *My assessment and Findings: Patient is a 82 year old female who comes in complaining of generalized weakness. She says she has been feeling this way since having knee replacement surgery in March. She was here before for similar symptoms. She says she also has some SOB on exertion. She reports not being able to sleep at night and feeling exhausted. She is stressed that she will not be able to rehab her knee properly. She is tearful on questioning. Exam shows no acute abnormalities. She has near full ROM of the right knee, no swelling or erythema. Data Data Last Documented VS Vital Signs Date Time Temp Pulse Resp B/P (MAP) Pulse Ox O2 Delivery O2 Flow Rate FiO2 04/26/17 17:41 04/26/17 16:35 92 16 79 72 04/26/17 16:35 97 Room Air 04/26/17 16:19 98.6 Orders Orders Electrocardiogram (04/26/17 11:58) Complete Blood Count With Diff (04/26/17 11:58) Comprehensive Metabolic Panel (04/26/17 11:58) Magnesium (Mg) (04/26/17 11:58) Ckmb (Isoenzyme) Profile (04/26/17 11:58) Troponin I (04/26/17 11:58) Act Partial Throm Time (Ptt) (04/26/17 11:58) Prothrombin Time / Inr (Pt) (04/26/17 11:58) Urinalysis - C+S If Indicated (04/26/17 11:58) Chest, Pa & Lat (04/26/17 ) Orthostatic Vital Signs (04/26/17 15:10) Thyroid Stimulating Hormone (04/26/17 15:10) Iv Access Insert/Monitor (04/26/17 15:10) Sodium Chlor 0.9% 1000 Ml Inj (Ns 1000 M (04/26/17 15:15) Meclizine (Antivert) (04/26/17 15:15) Ct Pulmonary Angiogram (04/26/17 15:11) Iohexol 350 Inj (Omnipaque 350 Inj) (04/26/17 11:44) Ed Discharge Order (04/26/17 17:29) Labs Laboratory Tests Test 04/26/17 13:20 White Blood Count 6.6 TH/MM3 Red Blood Count 4.41 MIL/MM3 Hemoglobin 13.1 GM/DL Hematocrit 38.7 % Mean Corpuscular Volume 87.7 FL Mean Corpuscular Hemoglobin 29.8 PG Mean Corpuscular Hemoglobin Concent 33.9 % Red Cell Distribution Width 13.8 % Platelet Count 353 TH/MM3 Mean Platelet Volume 7.3 FL Neutrophils (%) (Auto) 40.4 % Lymphocytes (%) (Auto) 50.8 % Monocytes (%) (Auto) 7.2 % Eosinophils (%) (Auto) 1.1 % Basophils (%) (Auto) 0.5 % Neutrophils # (Auto) 2.6 TH/MM3 Lymphocytes # (Auto) 3.3 TH/MM3 Monocytes # (Auto) 0.5 TH/MM3 Eosinophils # (Auto) 0.1 TH/MM3 Basophils # (Auto) 0.0 TH/MM3 CBC Comment DIFF FINAL Differential Comment Prothrombin Time 10.4 SEC Prothromb Time International Ratio 1.0 RATIO Activated Partial Thromboplast Time 22.2 SEC Urine Color LIGHT-YELLOW Urine Turbidity CLEAR Urine pH 6.0 Urine Specific [place] 1.003 Urine Protein NEG mg/dL Urine Glucose (UA) NEG mg/dL Urine Ketones NEG mg/dL Urine Occult Blood NEG Urine Nitrite NEG Urine Bilirubin NEG Urine Urobilinogen LESS THAN 2.0 MG/DL Urine Leukocyte Esterase NEG Microscopic Urinalysis Comment CULT NOT INDICATED Blood Urea Nitrogen 12 MG/DL Creatinine 0.84 MG/DL Random Glucose 89 MG/DL Total Protein 8.8 GM/DL Albumin 3.8 GM/DL Calcium Level 8.9 MG/DL Magnesium Level 2.3 MG/DL Alkaline Phosphatase 133 U/L Aspartate Amino Transf (AST/SGOT) 47 U/L Alanine Aminotransferase (ALT/SGPT) 38 U/L Total Bilirubin 0.4 MG/DL Sodium Level 137 MEQ/L Potassium Level 3.9 MEQ/L Chloride Level 103 MEQ/L Carbon Dioxide Level 24.9 MEQ/L Anion Gap 9 MEQ/L Estimat Glomerular Filtration Rate 65 ML/MIN Total Creatine Kinase 86 U/L Troponin I LESS THAN 0.02 NG/ML Thyroid Stimulating Hormone 3rd Gen 2.390 uIU/ML MDM Supervised Visit with SHANE: Yes Narrative Course Labs sent show no acute abnormalities. CTA performed shows no evidence of PE. Patient reassured. Advised that she needs to find ways to relax before bed to get some sleep. Advised she may have some deconditioning and needs to give herself some time to gain her strength back. Advised to follow up with her doctors. Advised to return to the ED as needed for any worsening symptoms. Ayanna Colon MD Apr 26, 2017 15:47
[2017-04-26 16:19] VITALS: TEMP 98.6
[2017-04-26 16:35] VITALS: BP_SYST 116; BP_SYST 139; BP_SYST 141; BP_DIAS 61; BP_DIAS 68; PULSE 72; RESP 15; RESP 16; O2SAT 97
--- NOTE | 2017-04-26 17:04 | RADRPT ---
EXAM DATE/TIME: 04/26/2017 16:44 [facility] COMPARISON: No previous studies available for comparison. INDICATIONS : Short of breath, embolism. IV CONTRAST: 74 cc Omnipaque 350 (iohexol) IV RADIATION DOSE: 18.27 CTDIvol (mGy) MEDICAL HISTORY : Bladder prolapse. SURGICAL HISTORY : Cholecystectomy. Appendectomy. ENCOUNTER: Initial ACUITY: 1 day PAIN SCALE: 2/10 LOCATION: Bilateral chest TECHNIQUE: Volumetric scanning of the chest was performed using a pulmonary embolism protocol MIP images were re constructed. Using automated exposure control and adjustment of the mA and/or kV according to patien t size, radiation dose was kept as low as reasonably achievable to obtain optimal diagnostic quality images. DICOM format image data is available electronically for review and comparison. Follow-up recommendations for detected pulmonary nodules are based at a minimum on nodule size and pa tient risk factors according to Fleischner Society Guidelines. FINDINGS: PULMONARY ARTERIES: No filling defects are seen in the pulmonary arteries through the segmental level. LUNGS: There is no consolidation or pneumothorax . No concerning pulmonary nodule is visualized. PLEURAE: There is no pleural thickening or pleural effusion. MEDIASTINUM: There is good visualization of the great vessels of the middle mediastinum. No evidence of mediastin al or hilar adenopathy/mass. MUSCULOSKELETAL: Within normal limits for patient age. MISCELLANEOUS: The visualized upper abdominal organs demonstrate no acute abnormality. CONCLUSION: No evidence of pulmonary embolism Skyler Chang MD on April 26, 2017 at 16:58 Board Certified Radiologist. This report was verified electronically.
--- NOTE | 2017-04-27 20:22 | EKG ---
Date Performed: 04/26/2017 Time Performed: 13:03:25 PTAGE: 82 years EKG: ELECTRONIC ATRIAL PACEMAKER ELECTRONIC VENTRICULAR PACEMAKER ABNORMAL RHYTHM ECG INTERPRETA TION BASED ON A DEFAULT AGE OF 40 YEARS NO PREVIOUS TRACING DOCTOR: Ben Cortes Interpretating Date/Time 04/27/2017 20:16:10
== END 2017-04-26 17:54 | disposition home or self-care (01) ==
LOC: NEPE 11:43
DX: G47.00 Insomnia, unspecified (principal); F41.9 Anxiety disorder, unspecified; M25.561 Pain in right knee; M19.90 Unspecified osteoarthritis, unspecified site; R94.31 Abnormal electrocardiogram [ECG] [EKG]; Z79.899 Other long term (current) drug therapy; Z96.659 Presence of unspecified artificial knee joint
CPT/HCPCS: 71046; 71275; 80053; 81001; 82550; 83735; 84443; 84484; 85025; 85610; 85730; 93005; 96360; 99285; J7030; Q9967